=== PATIENT | male | born 1970 | race Caucasian/White ===

== ENCOUNTER 2019-04-06 09:40 | Emergency (ER) | payer BC ==
[2019-04-06] MEDS ORDERED: ONDANSETRON 4 MG/2 ML VIAL ONE (10:34)
[2019-04-06] MEDS ORDERED: NA CHLORIDE 0.9% 0 ML ONE (10:34)
[2019-04-06 10:39] LABS: Absolute Lymphocytes (CBC) 0.3 K/uL (0.7-4.9); Absolute Monocytes 0.4 K/uL (0.1-1.3); Basophils % 0.9 % (0-1.3); Eosinophils % 1.1 % (0-4.4); Hematocrit 46.2 % (39.6-49.0); Lymphocytes % 2.4 % (15.3-44.8); MPV 7.4 fL (7.6-11.3); Monocytes % 3.7 % (3.3-12.3); RBC Red Blood Cell Count 5.24 M/uL (4.33-5.43)
[2019-04-06] MEDS ORDERED: NA CHLORIDE 0.9% 1,000 ML ONE (10:47)
[2019-04-06 11:08] LABS: Albumin 3.8 g/dL (3.4-5.0); Bilirubin Direct 0.1 mg/dL (0-0.2); Bilirubin Total 0.6 mg/dL (0.2-1.0); Potassium 4.3 mmol/L (3.5-5.1); Protein, Total 7.5 g/dL (6.4-8.2)
[2019-04-06 12:02] LABS: Blood Morphology Comment NOT SEEN (NOT SEEN); Platelet Estimate ADEQ; Urine White Blood Cell Casts OK
--- NOTE | 2019-04-06 12:17 | ER ---
Nurse's Notes [facility] Name: Harrison Iglesias Age: 48 yrs Sex: Male : 1970 Arrival Date: 04/06/2019 Time: 09:37 Bed 2 Private MD: Diagnosis: Diarrhea, unspecified;Infected Insect Bite Presentation: 04/06 09:38 Presenting complaint: EMS states: N/V/D since 0600, not tolerating fluids. 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 BP 125-99, HR 100, R 16, BGL 133. Transition of care: patient was not received from another setting of care. Onset of symptoms was April 06, 2019. Risk Assessment: Do you want to hurt yourself or someone else? Patient reports no desire to harm self or others. Initial Sepsis Screen: Does the patient meet any 2 criteria? No. Patient's initial sepsis screen is negative. Does the patient have a suspected source of infection? No. Patient's initial sepsis screen is negative. 09:38 Method Of Arrival: EMS: [facility] hb 09:38 Acuity: SIN 3 hb 10:06 Care prior to arrival: Medication(s) given: Normal saline infusion, 500 mL, IV tw2 initiated. 20 GA, in the right antecubital area. Triage Assessment: 09:42 General: Appears in no apparent distress. Behavior is calm, cooperative. Pain: Pain hb currently is 3 out of 10 on a pain scale. EENT: No signs and/or symptoms were reported regarding the EENT system. Neuro: Level of Consciousness is awake, alert, obeys commands, Oriented to person, place, time, situation. Cardiovascular: Heart tones S1 S2 present Capillary refill < 3 seconds Patient's skin is warm and dry. Respiratory: Airway is patent Respiratory effort is even, unlabored, Respiratory pattern is regular, symmetrical, Breath sounds are clear bilaterally. GI: Abdomen is non-distended, Bowel sounds present X 4 quads. Abd is soft and non tender X 4 quads. Reports cramping. : No signs and/or symptoms were reported regarding the genitourinary system. Derm: Skin is pink, warm \T\ dry. Musculoskeletal: No signs and/or symptoms reported regarding the musculoskeletal system. Historical: - Allergies: 09:42 PENICILLINS; hb - Home Meds: 09:42 None [Active]; hb - PMHx: 09:42 None; hb - PSHx: 09:42 Tonsillectomy; testicular surgery; hb - Immunization history:: Adult Immunizations up to date. - Social history:: Smoking status: Patient/guardian denies using tobacco. - Ebola Screening: : No symptoms or risks identified at this time. Screenin:43 Abuse screen: Denies threats or abuse. Denies injuries from another. Nutritional hb screening: No deficits noted. Tuberculosis screening: No symptoms or risk factors identified. Fall Risk None identified. Assessment: :43 General: see triage assessment. hb 10:30 Reassessment: Patient appears in no apparent distress at this time. Patient and/or hb family updated on plan of care and expected duration. Pain level reassessed. Patient is alert, oriented x 3, equal unlabored respirations, skin warm/dry/pink. 11:30 Reassessment: Patient appears in no apparent distress at this time. No changes from hb previously documented assessment. Patient and/or family updated on plan of care and expected duration. Pain level reassessed. Patient is alert, oriented x 3, equal unlabored respirations, skin warm/dry/pink. 12:59 Reassessment: Patient appears in no apparent distress at this time. No changes from tw2 previously documented assessment. Patient and/or family updated on plan of care and expected duration. Pain level reassessed. Patient is alert, oriented x 3, equal unlabored respirations, skin warm/dry/pink. Vital Signs: 09:41 BP 138 / 85; Pulse 88; Resp 16; Temp 98.4; Pulse Ox 100% on R/A; Weight 92.99 kg; tw2 Height 5 ft. 8 in. (172.72 cm); Pain 0/10; 10:30 BP 146 / 83; Pulse 89; Resp 16; Pulse Ox 99% on R/A; hb 11:30 BP 123 / 71; Pulse 92; Resp 15; Pulse Ox 100% on R/A; hb 12:59 BP 128 / 79; Pulse 88; Resp 17; Pulse Ox 97% on R/A; tw2 09:41 Body Mass Index 31.17 (92.99 kg, 172.72 cm) tw2 ED Course: 09:37 Patient arrived in ED. hb 09:40 Triage completed. hb 09:40 Arm band placed on. hb 09:43 Patient has correct armband on for positive identification. Placed in gown. Bed in low hb position. Call light in reach. Side rails up X 1. 09:43 Maintain EMS IV. Dressing intact. Good blood return noted. Site clean \T\ dry. Gauge \T\ hb site: 20g RIGHT AC. 10:03 [facility] 10:03 Stanislav Greenberg MD is Attending Physician. [facility] 10:33 Che Chen, RN is Primary Nurse. hb 12:59 No provider procedures requiring assistance completed. IV discontinued, intact, tw2 bleeding controlled, No redness/swelling at site. Pressure dressing applied. Administered Medications: 10:38 Drug: NS 0.9% 1000 ml Route: IV; Rate: 1 bolus; Site: right antecubital; tw2 11:15 Follow up: IV Status: Completed infusion; IV Intake: 1000ml tw2 10:40 Drug: Zofran 4 mg Route: IVP; Site: right antecubital; tw2 11:00 Follow up: Response: No adverse reaction; Nausea is decreased tw2 Intake: 11:15 IV: 1000ml; Total: 1000ml. tw2 Outcome: 12:16 Discharge ordered by . [facility] 12:59 Discharged to home ambulatory, with significant other. tw2 12:59 Condition: stable 12:59 Discharge instructions given to patient, significant other, Instructed on discharge instructions, follow up and referral plans. medication usage, Demonstrated understanding of instructions, follow-up care, medications, Prescriptions given X 2. 13:00 Patient left the ED. tw2 Signatures: Kehinde Martin PA PA [facility] Che Chen, RN RN hb Sonia Kirby RN RN tw2 Corrections: (The following items were deleted from the chart) 10:06 09:41 BP 138 / 85; Pulse 88bpm; Resp 16bpm; Pulse Ox 100% RA; Temp 98.4F; 83.91 kg; tw2 Height 5 ft. 8 in.; BMI: 28.1; Pain 3/10; hb
--- NOTE | 2019-04-06 12:17 | EDPHYS ---
Physician Documentation [facility] Name: Harrison Iglesias Age: 48 yrs Sex: Male : 1970 Arrival Date: 04/06/2019 Time: 09:37 Bed 2 Private MD: ED Physician Stanislav Greenberg HPI: 04/06 10:15 This 48 yrs old Male presents to ER via EMS with complaints of jmm Nausea/Vomiting/Diarrhea. 10:15 The patient presents to the emergency department with nausea, diarrhea. Onset: The jmm symptoms/episode began/occurred acutely, this morning. Possible causes: bad food exposure. The symptoms are aggravated by nothing. The symptoms are alleviated by nothing. Associated signs and symptoms: Pertinent negatives: fever. This is a 48 year old male with no chronic medical conditions that presents to the ED with complaints of diarrhea, nausea beginning this morning. Patient states he ate a burger last night and his daughter is sick with similar symptoms. Denies abdominal pain. Patient also complains of an insect bite to his right knee. . Historical: - Allergies: 09:42 PENICILLINS; hb - Home Meds: 09:42 None [Active]; hb - PMHx: 09:42 None; hb - PSHx: 09:42 Tonsillectomy; testicular surgery; hb - Immunization history:: Adult Immunizations up to date. - Social history:: Smoking status: Patient/guardian denies using tobacco. - Ebola Screening: : No symptoms or risks identified at this time. ROS: 10:15 Constitutional: Negative for fever, chills, and weight loss, Cardiovascular: Negative jmm for chest pain, palpitations, and edema, Respiratory: Negative for shortness of breath, cough, wheezing, and pleuritic chest pain. 10:15 Back: Negative for injury and pain, MS/Extremity: Negative for injury and deformity, Skin: Negative for injury, rash, and discoloration, Neuro: Negative for headache, weakness, numbness, tingling, and seizure, Psych: Negative for depression, anxiety, suicide ideation, homicidal ideation, and hallucinations. 10:15 Abdomen/GI: Positive for diarrhea. 10:15 All other systems are negative. Exam: 10:15 Constitutional: This is a well developed, well nourished patient who is awake, alert, jmm and in no acute distress. Head/Face: atraumatic. Eyes: EOMI, no conjunctival erythema appreciated ENT: Moist Mucus Membranes Neck: Trachea midline, Supple Chest/axilla: Normal chest wall appearance and motion. Cardiovascular: Regular rate and rhythm. No edema appreciated Respiratory: Normal respirations, no respiratory distress appreciated Abdomen/GI: Non distended, soft 10:15 Abdomen/GI: Inspection: abdomen appears normal, Bowel sounds: normal, Palpation: soft, nontender, in all quadrants. 10:15 Musculoskeletal/extremity: FROM noted to the right knee, compartments are soft, NVI. 10:15 Skin: mild erythema noted to the anterior surface of the right knee, mildly tender to palpation. 10:15 Neuro: Orientation: is normal, Mentation: is normal, Memory: is normal. 10:15 Psych: Behavior/mood is pleasant, cooperative. Vital Signs: 09:41 BP 138 / 85; Pulse 88; Resp 16; Temp 98.4; Pulse Ox 100% on R/A; Weight 92.99 kg; tw2 Height 5 ft. 8 in. (172.72 cm); Pain 0/10; 10:30 BP 146 / 83; Pulse 89; Resp 16; Pulse Ox 99% on R/A; hb 11:30 BP 123 / 71; Pulse 92; Resp 15; Pulse Ox 100% on R/A; hb 12:59 BP 128 / 79; Pulse 88; Resp 17; Pulse Ox 97% on R/A; tw2 09:41 Body Mass Index 31.17 (92.99 kg, 172.72 cm) tw2 MDM: 10:14 Patient medically screened. jeff 12:13 Data reviewed: vital signs, nurses notes. Counseling: I had a detailed discussion with jeff the patient and/or guardian regarding: the historical points, exam findings, and any diagnostic results supporting the discharge/admit diagnosis, lab results, radiology results, the need for outpatient follow up, to return to the emergency department if symptoms worsen or persist or if there are any questions or concerns that arise at home. ED course: Patient is alert and non toxic in appearance in the ED. Patient tolerates PO in the ED. Serial abdominal exams are benign. I do not currently suspect an acute intraabdominal process. Symptoms appear most likely viral or food contamination related. Patient is advised to follow up with PCP. Patient is otherwise given strict return precautions for fever, increased pain, or any other concerning conditions. Patient understood and agrees with the plan of care. . 04/06 10:15 Order name: Basic Metabolic Panel [facility] 04/06 10:15 Order name: CBC with Diff; Complete Time: 12:[address] [facility] 04/06 10:15 Order name: Creatinine for Radiology; Complete Time: 11:[address] [facility] 04/06 10:15 Order name: Hepatic Function; Complete Time: 11:[address] [facility] 04/06 10:15 Order name: Lipase; Complete Time: 11:[address] [facility] 04/06 10:15 Order name: Basic Metabolic Panel; Complete Time: 11:32 [facility] 04/06 10:15 Order name: IV Saline Lock; Complete Time: 10:[address] [facility] 04/06 10:15 Order name: Labs collected and sent; Complete Time: 10:[address] [facility] 04/06 10:49 Order name: CBC Smear Scan; Complete Time: 12:07 EDMS Administered Medications: 10:38 Drug: NS 0.9% 1000 ml Route: IV; Rate: 1 bolus; Site: right antecubital; tw2 11:15 Follow up: IV Status: Completed infusion; IV Intake: 1000ml tw2 10:40 Drug: Zofran 4 mg Route: IVP; Site: right antecubital; tw2 11:00 Follow up: Response: No adverse reaction; Nausea is decreased tw2 Disposition: 04/06/19 12:16 Discharged to Home. Impression: Diarrhea, unspecified, Infected Insect Bite. - Condition is Stable. - Discharge Instructions: Food Choices to Help Relieve Diarrhea, Adult, Insect Bite, Diarrhea, Adult. - Prescriptions for Zofran ODT 4 mg Oral tablet,disintegrating - place 1 tablet by TRANSLINGUAL route every 4-6 hours; 20 tablet. Bactrim DS 800- 160 mg Oral Tablet - take 1 tablet by ORAL route every 12 hours for 10 days; 20 tablet. - Medication Reconciliation Form, Thank You Letter, Antibiotic Education, Prescription Opioid Use, Work release form form. - Follow up: Private Physician; When: 2 - 3 days; Reason: Recheck today's complaints, Continuance of care, Re-evaluation by your physician. Addendum: 04/07/2019 16:18 Co-signature as Attending Physician, Stanislav Greenberg MD. g s Signatures: Dispatcher [employer] EDDC Kehinde Martin PA PA m Che Chen, RN RN Sonia Kirby RN RN tw2 GreenbergStanislav MD MD gs Corrections: (The following items were deleted from the chart) 04/06 12:53 12:16 04/06/2019 12:16 Discharged to Home. Impression: Diarrhea, unspecified. Condition jeff is Stable. Forms are Medication Reconciliation Form, Thank You Letter, Antibiotic Education, Prescription Opioid Use. Follow up: Private Physician; When: 2 - 3 days; Reason: Recheck today's complaints, Continuance of care, Re-evaluation by your physician. [facility] 13:00 12:53 04/06/2019 12:16 Discharged to Home. Impression: Diarrhea, unspecified; Infected tw2 Insect Bite. Condition is Stable. Discharge Instructions: Food Choices to Help Relieve Diarrhea, Adult, Diarrhea, Adult. Prescriptions for Zofran ODT 4 mg Oral tablet,disintegrating - place 1 tablet by TRANSLINGUAL route every 4-6 hours; 20 tablet. and Forms are Medication Reconciliation Form, Thank You Letter, Antibiotic Education, Prescription Opioid Use, Work release form. Follow up: Private Physician; When: 2 - 3 days; Reason: Recheck today's complaints, Continuance of care, Re-evaluation by your physician. jeff
[2019-04-06 14:25] VITALS: TEMP 98.4
[2019-04-06 14:29] VITALS: BP 128/79; O2SAT 97
== END 2019-04-06 13:00 | disposition home or self-care (01) ==
LOC: ER 09:40
DX: R19.7 Diarrhea, unspecified (principal); S80.261A Insect bite (nonvenomous), right knee, initial encounter; L08.9 Local infection of the skin and subcutaneous tissue, unspecified; Z88.0 Allergy status to penicillin
CPT/HCPCS: 36415; 80048; 80076; 83690; 85025; 96361; 96374; 99283; J2405; J7030

== ENCOUNTER 2019-06-20 04:42 | Emergency (ER) | payer BC ==
[2019-06-20 05:41] LABS: Absolute Lymphocytes (CBC) 1.1 K/uL (0.7-4.9); Basophils % 1.1 % (0-1.3); Hematocrit 44.8 % (39.6-49.0); Lymphocytes % 12.2 % (15.3-44.8); MPV 7.2 fL (7.6-11.3); RBC Red Blood Cell Count 5.08 M/uL (4.33-5.43)
[2019-06-20 05:43] LABS: ALT/SGPT 57 U/L (12-78); AST/SGOT 24 U/L (15-37); Albumin 4.1 g/dL (3.4-5.0); Alkaline Phosphatase 73 U/L (45-117); BUN Blood Urea Nitrogen 18 mg/dL (7-18); Bicarbonate 26 mmol/L (21-32); Bilirubin Direct 0.1 mg/dL (0-0.2); Bilirubin Total 0.3 mg/dL (0.2-1.0); Glucose Level 122 mg/dL (74-106); Magnesium 2.3 mg/dL (1.8-2.4); NT PRO-BNP 11 pg/mL (<125); Potassium 3.9 mmol/L (3.5-5.1); Protein, Total 7.9 g/dL (6.4-8.2); Protime INR 1.09; Sodium Level 136 mmol/L (136-145); Troponin (Emerg Dept Use Only) < 0.02 ng/mL (0.0-0.045)
[2019-06-20] MEDS ORDERED: NA CHLORIDE 0.9% 1,000 ML ONE (06:39)
--- NOTE | 2019-06-20 07:12 | ER ---
Nurse's Notes [facility] Name: Harrison Iglesias Age: 49 yrs Sex: Male : 1970 Arrival Date: 06/20/2019 Time: 04:46 Bed 6 Private MD: Diagnosis: Dizziness and giddiness;Hypertensive crisis Presentation: 06/20 04:47 Presenting complaint: EMS states: Pt was feeling dizzy and having hot flashes while he tr5 was at work today. Transition of care: patient was not received from another setting of care. Onset of symptoms was June 20, 2019. Risk Assessment: Do you want to hurt yourself or someone else? Patient reports no desire to harm self or others. Initial Sepsis Screen: Does the patient meet any 2 criteria? No. Patient's initial sepsis screen is negative. Does the patient have a suspected source of infection? No. Patient's initial sepsis screen is negative. Care prior to arrival: None. 04:47 Method Of Arrival: EMS: [facility] tr5 04:47 Acuity: SIN 3 tr5 Triage Assessment: 04:50 General: Appears in no apparent distress. Behavior is calm, cooperative. Pain: Denies tr5 pain. Historical: - Allergies: 04:50 PENICILLINS; tr5 - Immunization history:: Adult Immunizations up to date. - Social history:: Smoking status: Patient/guardian denies using tobacco, never smoked. - Ebola Screening: : No symptoms or risks identified at this time. Screenin:51 Abuse screen: Denies threats or abuse. Nutritional screening: No deficits noted. tr5 Tuberculosis screening: No symptoms or risk factors identified. Fall Risk Total Elam Fall Scale indicates No Risk (0-24 pts). Assessment: 04:51 General: Appears in no apparent distress. Behavior is calm, cooperative, appropriate tr5 for age. Pain: Denies pain. 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 Gait is steady, Speech is normal, Facial symmetry appears normal, Reports dizziness. Cardiovascular: Heart tones present Capillary refill < 3 seconds Pulses are all present. Edema is absent. Respiratory: Airway is patent Trachea midline Respiratory effort is even, unlabored, Respiratory pattern is regular, symmetrical, Breath sounds are clear bilaterally. GI: No signs and/or symptoms were reported involving the gastrointestinal system. : No signs and/or symptoms were reported regarding the genitourinary system. EENT: No signs and/or symptoms were reported regarding the EENT system. Derm: Skin is intact, Skin is dry, Skin is normal. Musculoskeletal: Capillary refill < 3 seconds, Range of motion: intact in all extremities. 05:26 Reassessment: Patient appears in no apparent distress at this time. Patient is alert, tr5 oriented x 3, equal unlabored respirations, skin warm/dry/pink. 06:23 Reassessment: Patient appears in no apparent distress at this time. Patient is alert, tr5 oriented x 3, equal unlabored respirations, skin warm/dry/pink. 07:45 Reassessment: Patient appears in no apparent distress at this time. Patient and/or ph family updated on plan of care and expected duration. Pain level reassessed. Patient is alert, oriented x 3, equal unlabored respirations, skin warm/dry/pink. Patient states feeling better. Patient states symptoms have improved. Vital Signs: 04:50 BP 175 / 102; Pulse 90; Resp 16; Temp 99.1(O); Pulse Ox 98% on R/A; tr5 05:26 BP 134 / 77; Pulse 79; Resp 16; Pulse Ox 100% on R/A; tr5 06:23 BP 99 / 46; Pulse 76; Resp 19; Pulse Ox 100% ; tr5 07:30 BP 131 / 70; Pulse 75; Resp 18; Temp 97.8; Pulse Ox 99% on R/A; ph ED Course: 04:46 Patient arrived in ED. tw4 04:47 Otoniel Johnson, COLLEEN is Primary Nurse. tr5 04:49 Triage completed. tr5 04:50 Arm band placed on. tr5 04:51 Patient has correct armband on for positive identification. Placed in gown. Bed in low tr5 position. Call light in reach. Pulse ox on. NIBP on. Door closed. Noise minimized. Warm blanket given. Head of bed elevated. 04:51 Initial lab(s) drawn, by ED staff. Inserted saline lock: 20 gauge in right antecubital tr5 area, using aseptic technique. 05:01 Thai Alas MD is Attending Physician. tw4 05:25 X-ray completed. Portable x-ray completed in exam room. Patient tolerated procedure kw well. 05:26 XRAY Chest (1 view) In Process Unspecified. EDMS 05:30 EKG done, by ED staff. tr5 08:03 No provider procedures requiring assistance completed. IV discontinued, intact, ph bleeding controlled, No redness/swelling at site. Pressure dressing applied. Administered Medications: 06:20 Drug: NS 0.9% 1000 ml Route: IV; Rate: 1 bolus; Site: right antecubital; tr5 08:04 Follow up: Response: No adverse reaction; IV Status: Completed infusion; IV Intake: ph 800ml Intake: 08:04 IV: 800ml; Total: 800ml. ph Outcome: 07:11 Discharge ordered by . cassius 08:03 Discharged to home ambulatory, with significant other. ph 08:03 Condition: improved 08:03 Discharge instructions given to patient, Instructed on discharge instructions, follow up and referral plans. Demonstrated understanding of instructions, follow-up care. 08:04 Patient left the ED. ph Signatures: Dispatcher [employer] EDIA Griselda Jackson kw Magda Mendoza, RN RN ph Thai Alas MD MD tw4 Otoniel Johnson, RN RN tr5 Corrections: (The following items were deleted from the chart) 06:46 05:30 Lab(s) recollected, by ED staff, tr5 tr5
--- NOTE | 2019-06-20 07:13 | EDPHYS ---
Physician Documentation [facility] Name: Harrison Iglesias Age: 49 yrs Sex: Male : 1970 Arrival Date: 06/20/2019 Time: 04:46 Bed 6 Private MD: ED Physician Thai Alas HPI: 06/20 04:47 This 49 yrs old Male presents to ER via Unassigned with complaints of tw4 Dizziness. 04:47 The patient presents with dizziness, generalized weakness, lightheadedness. Onset: The tw4 symptoms/episode began/occurred today. Context: occurred at home. Modifying factors: The symptoms are alleviated by. Associated signs and symptoms: Pertinent positives: near-syncope, Pertinent negatives: abdominal pain, chest pain. Severity of symptoms: At their worst the symptoms were. The patient has not experienced similar symptoms in the past. Historical: - Allergies: 04:50 PENICILLINS; tr5 - Immunization history:: Adult Immunizations up to date. - Social history:: Smoking status: Patient/guardian denies using tobacco, never smoked. - Ebola Screening: : No symptoms or risks identified at this time. ROS: 04:47 Constitutional: Negative for fever, chills, and weight loss, Eyes: Negative for injury, tw4 pain, redness, and discharge, Cardiovascular: Negative for chest pain, palpitations, and edema, Respiratory: Negative for shortness of breath, cough, wheezing, and pleuritic chest pain, Abdomen/GI: Negative for abdominal pain, nausea, vomiting, diarrhea, and constipation, Back: Negative for injury and pain, MS/Extremity: Negative for injury and deformity. 04:47 Neuro: Positive for dizziness, Negative for altered mental status, headache, hearing loss, numbness, seizure activity, tinnitus, tremor. Exam: 04:47 Constitutional: This is a well developed, well nourished patient who is awake, alert, tw4 and in no acute distress. Head/Face: Normocephalic, atraumatic. Chest/axilla: Normal chest wall appearance and motion. Nontender with no deformity. No lesions are appreciated. Cardiovascular: Regular rate and rhythm with a normal S1 and S2. No gallops, murmurs, or rubs. Normal PMI, no JVD. No pulse deficits. Respiratory: Lungs have equal breath sounds bilaterally, clear to auscultation and percussion. No rales, rhonchi or wheezes noted. No increased work of breathing, no retractions or nasal flaring. Abdomen/GI: Soft, non-tender, with normal bowel sounds. No distension or tympany. No guarding or rebound. No evidence of tenderness throughout. Back: No spinal tenderness. No costovertebral tenderness. Full range of motion. MS/ Extremity: Pulses equal, no cyanosis. Neurovascular intact. Full, normal range of motion. Neuro: Awake and alert, GCS 15, oriented to person, place, time, and situation. Cranial nerves II-XII grossly intact. Motor strength 5/5 in all extremities. Sensory grossly intact. Cerebellar exam normal. Normal gait. Vital Signs: 04:50 BP 175 / 102; Pulse 90; Resp 16; Temp 99.1(O); Pulse Ox 98% on R/A; tr5 05:26 BP 134 / 77; Pulse 79; Resp 16; Pulse Ox 100% on R/A; tr5 06:23 BP 99 / 46; Pulse 76; Resp 19; Pulse Ox 100% ; tr5 07:30 BP 131 / 70; Pulse 75; Resp 18; Temp 97.8; Pulse Ox 99% on R/A; ph MDM: 05:01 Patient medically screened. 06/20 05:06 Order name: Basic Metabolic Panel 06/20 05:06 Order name: CBC with Diff; Complete Time: 06:08 06/20 06:08 Interpretation: Normal except: MPV 7.2; LYM% 12.2; MIRELA% 79.6. 06/20 05:06 Order name: LFT's; Complete Time: 06:08 06/20 06:08 Interpretation: Normal except: GLOB 3.8. 06/20 05:06 Order name: Magnesium; Complete Time: 06:08 06/20 06:09 Interpretation: Within normal limits: MG 2.3. 06/20 05:06 Order name: NT PRO-BNP; Complete Time: 06:08 06/20 06:09 Interpretation: Within normal limits: NT PRO-BNP 11. 06/20 05:06 Order name: PT-INR; Complete Time: 06:08 06/20 06:08 Interpretation: Normal except: PT 12.8. tw06/20 05:06 Order name: Troponin (emerg Dept Use Only); Complete Time: 06:08 tw4 06/20 06:09 Interpretation: Within normal limits: TROPED < 0.02. tw06/20 05:06 Order name: XRAY Chest (1 view) 06/20 05:06 Order name: EKG; Complete Time: 05:12 tw4 06/20 05:06 Order name: Cardiac monitoring; Complete Time: 05:12 tw4 06/20 05:06 Order name: EKG - Nurse/Tech; Complete Time: 05:26 tw4 06/20 05:06 Order name: IV Saline Lock; Complete Time: 05:12 tw4 06/20 05:12 Order name: Basic Metabolic Panel; Complete Time: 06:08 [facility] 06/20 06:08 Interpretation: Normal except: GLUC 122; GFR 65. 06/20 05:06 Order name: Labs collected and sent; Complete Time: 05:12 tw4 06/20 05:06 Order name: O2 Per Protocol; Complete Time: 05:07 06/20 05:06 Order name: O2 Sat Monitoring; Complete Time: 05:07 tw4 EC:34 Rate is 77 beats/min. Rhythm is regular. QRS Harrison is Normal. PA interval is normal. QRS tw4 interval is normal. QT interval is normal. No Q waves. T waves are Normal. No ST changes noted. Clinical impression: Normal ECG. Interpreted by me. Reviewed by me. Administered Medications: 06:20 Drug: NS 0.9% 1000 ml Route: IV; Rate: 1 bolus; Site: right antecubital; tr5 08:04 Follow up: Response: No adverse reaction; IV Status: Completed infusion; IV Intake: ph 800ml Disposition: 06/20/19 07:11 Discharged to Home. Impression: Dizziness and giddiness, Hypertensive crisis. - Condition is Stable. - Discharge Instructions: Dizziness, Hypertension. - Medication Reconciliation Form, Thank You Letter, Antibiotic Education, Prescription Opioid Use form. - Follow up: Private Physician; When: Upon discharge from the Emergency Department; Reason: If symptoms return, Recheck today's complaints, Continuance of care. - Problem is new. - Symptoms have improved. Signatures: Dispatcher [employer] Magda Sharp RN RN ph Thai Alas MD MD tw4 Otoniel Johnson RN RN tr5 Corrections: (The following items were deleted from the chart) 07:18 07:11 06/20/2019 07:11 Discharged to Home. Impression: Dizziness and giddiness. tw4 Condition is Stable. Forms are Medication Reconciliation Form, Thank You Letter, Antibiotic Education, Prescription Opioid Use. Follow up: Private Physician; When: Upon discharge from the Emergency Department; Reason: If symptoms return, Recheck today's complaints, Continuance of care. Problem is new. Symptoms have improved. tw4 08:04 07:18 06/20/2019 07:11 Discharged to Home. Impression: Dizziness and giddiness; ph Hypertensive crisis. Condition is Stable. Discharge Instructions: Dizziness. Prescriptions for Meclizine 25 mg Oral Tablet - take 1 tablet by ORAL route every 8 hours As needed; 30 tablet. and Forms are Medication Reconciliation Form, Thank You Letter, Antibiotic Education, Prescription Opioid Use. Follow up: Private Physician; When: Upon discharge from the Emergency Department; Reason: If symptoms return, Recheck today's complaints, Continuance of care. Problem is new. Symptoms have improved. tw4
--- NOTE | 2019-06-20 08:13 | RAD REPORT ---
EXAM DESCRIPTION: Eligio Single View06/20/2019 5:28 am CLINICAL HISTORY: Chest pain COMPARISON: 2016 FINDINGS: The lungs appear clear of acute infiltrate. The heart is normal size IMPRESSION: No acute abnormalities displayed
[2019-06-20 08:29] VITALS: BP 131/70; TEMP 97.8; O2SAT 99
--- NOTE | 2019-06-20 10:48 | EKG ---
Test Date: 2019-06-20 Test Time: 05:21:59 Circular Head Saw Operator: TR MEASUREMENT RESULTS: Intervals: Rate: 77 NE: 162 QRSD: 94 QT: 370 QTc: 418 [place]: P: 46 NE: 162 QRS: 45 T: 39 INTERPRETIVE STATEMENTS: Normal sinus rhythm Normal ECG Compared to ECG 02/13/2017 00:06:39 No significant changes Electronically Signed On 06-20-19 10:47:20 CDT by Mainor Garcia
== END 2019-06-20 08:04 | disposition home or self-care (01) ==
LOC: ER 04:42
DX: I16.9 Hypertensive crisis, unspecified (principal); Z88.0 Allergy status to penicillin
CPT/HCPCS: 36415; 71045; 80048; 80076; 83735; 83880; 84484; 85025; 85610; 93005; J7030